=== PATIENT | male | born 1960 | race Caucasian/White ===

== ENCOUNTER 2024-11-09 09:09 | Emergency (ER) | payer OTHER ==
[2024-11-09] MEDS ORDERED: KETOROLAC 30 MG/ML INJ ONE (10:13)
[2024-11-09] MEDS ORDERED: ONDANSETRON 4 MG/2 ML VIAL ONE (10:13)
[2024-11-09] MEDS ORDERED: NA CHLORIDE 0.9% 1,000 ML ONE (10:14)
[2024-11-09] MEDS ORDERED: MORPHINE 4 MG/ML SYR ONE (10:24)
[2024-11-09 10:40] LABS: Absolute Monocytes 0.3 K/uL (0.1-1.3); Absolute Neutrophil 5.4 K/uL (1.8-8.0); Basophils % 0.6 % (0-1.3); Eosinophils % 0.2 % (0-4.4); Hematocrit 45.4 % (39.6-49.0); Hemoglobin 15.9 g/dL (13.6-17.9); MCH 32.6 pg (27.0-35.0); MCHC 35.1 g/dL (32.0-36.0); MPV 8.7 fL (7.6-11.3); Monocytes % 4.7 % (3.3-12.3); Neutrophils % 79.5 % (41.7-73.7); Nucleated Red Blood Cells % 0.1 % (0-0); Platelets 201 thou/uL (152-406); RBC Red Blood Cell Count 4.88 M/uL (4.33-5.43); Red Cell Distribution Width 12.4 % (12.1-15.2)
[2024-11-09 10:43] LABS: Specific Gravity 1.024 (1.005-1.030); Sqamous Epithelial None Seen /HPF (None Seen); Urine Bacteria <20 /HPF (<20); Urine Bilirubin NEGATIVE (Negative); Urine Blood 3+ (Negative); Urine Clarity Extremely Turbid (Clear); Urine Color Light-Yellow (Yellow); Urine Culture Reflex Order REFLEXED; Urine Glucose TRACE (Negative); Urine Ketones NEGATIVE (Negative); Urine Microscopic Reflex YN ORDER UMIC; Urine Mucus 2+ /HPF (None Seen); Urine Nitrite NEGATIVE (Negative); Urine Protein NEGATIVE (Negative); Urine RBC 21-50 /HPF (None Seen); Urine Urobilinogen Normal (Normal); Urine WBC <5 /HPF (<5); Urine pH 5.5 (5.0-7.0)
[2024-11-09 10:55] LABS: Albumin 3.6 g/dL (3.4-5.0); Albumin/Globulin Ratio 1.1 (1.1-1.8); Anion Gap 7.9 mEq/L (5.0-15.0); Bilirubin Total 0.9 mg/dL (0.2-1.0); Globulin 3.4 g/dL (2.3-3.5); Potassium 3.9 mEq/L (3.5-5.1)
--- NOTE | 2024-11-09 12:32 | RAD REPORT ---
EXAMINATION: CT Abdomen Pelvis W Contrast CLINICAL INDICATION: Male, 64 years old. FLANK PAIN TECHNIQUE: CT abdomen and pelvis was performed, after the administration of IV contrast, as per [facility] protocol. Axial, sagittal and coronal reconstructions were obtained. One or more of the following dose reduction techniques were used: Automated exposure control, adjustment of the mA and k V according to patient size, and iterative reconstruction. Unless otherwise specified, incidental findings do not require dedicated imaging follow-up. COMPARISON: No prior exam. FINDINGS: LOWER CHEST: The visualized lung bases are clear. LIVER: Mild fatty liver is present. No focal lesion or biliary dilataion is seen. BILIARY SYSTEM: No suspicious abnormalities. SPLEEN: Normal size. No focal lesion. PANCREAS: No mass, ductal dilation, or yany-pancreatic fluid. ADRENALS: Normal; no mass. KIDNEYS: Normal size and contour. 2 mm calculus at the right vesicoureteral junction. Mild right hydr oureteronephrosis with perinephric fat stranding. URINARY BLADDER: Decompressed limiting evaluation. GASTROINTESTINAL TRACT: No evidence of free air, significant intra-abdominal free fluid, bowel obstru ction or abscess. APPENDIX: Normal appendix. LYMPH NODES: No lymphadenopathy. MUSCULOSKELETAL: No acute or suspicious osseous abnormality. ADDITIONAL FINDINGS: Prostatomegaly. IMPRESSION: Mild right hydroureteronephrosis. 2 mm nonobstructing right vesicoureteral junction. Diffuse hepatic parenchymal hypoattenuation suggesting steatosis. Prostatomegaly. THIS REPORT CONTAINS FINDINGS THAT MAY BE CRITICAL TO PATIENT CARE. The findings were verbally commun icated via telephone to BRANNON Weinstein on 11/09/2024 12:29 PM.
--- NOTE | 2024-11-09 12:41 | ER ---
Nurse's Notes [facility] Name: Jr Sosa Age: 64 yrs Sex: Male : 1960 Arrival Date: 11/09/2024 Time: 09:09 Bed 11 Private MD: Diagnosis: Calculus of kidney with calculus of ureter-right, 2 mm Presentation: 11/09 09:30 Chief complaint: Patient states: R flank pain that began last night. N/V this morning. ss HX of kidney stones. Coronavirus screen: Client denies travel out of the [place] in the last 14 days. Ebola Screen: Patient denies exposure to infectious person. Patient denies travel to an Ebola-affected area in the 21 days before illness onset. Initial Sepsis Screen: Does the patient meet any 2 criteria? No. Patient's initial sepsis screen is negative. Does the patient have a suspected source of infection? No. Patient's initial sepsis screen is negative. Risk Assessment: Do you want to hurt yourself or someone else? Patient reports no desire to harm self or others. Onset of symptoms was November 08, 2024. 09:30 Method Of Arrival: Ambulatory ss 09:30 Acuity: LEXUS 3 ss Triage Assessment: 09:30 General: Appears in no apparent distress. Behavior is calm, cooperative. Pain: ss Complains of pain in R flank Pain radiates to R side of abd Pain began last night. Historical: - Allergies: 09:31 No Known Allergies; ss - Home Meds: :31 None [Active]; ss - PMHx: :31 kidney stones; ss - PSHx: 09:31 femur repair; ss - Infectious Disease History:: Denies. - Social history:: Smoking status: Patient denies any tobacco usage or history of. Screenin:30 Abuse screen: Denies threats or abuse. Denies injuries from another. Nutritional ss screening: No deficits noted. Tuberculosis screening: Never had TB. Assessment: 09:30 General: Appears in no apparent distress. Behavior is calm, cooperative. Pain: ss Complains of pain in R flank Pain radiates to right lower quadrant. Neuro: Level of Consciousness is awake, alert, obeys commands, Oriented to person, place, time, situation, Hall Cleaner are equal bilaterally Speech is normal. Respiratory: Airway is patent Respiratory effort is even, unlabored, Respiratory pattern is regular, symmetrical. GI: Reports nausea, vomiting. Derm: Skin is intact, is healthy with good turgor, Skin is dry, Skin is pink, warm \T\ dry. normal. 10:31 Reassessment: Patient appears in no apparent distress at this time. Patient and/or ss family updated on plan of care and expected duration. Pain level reassessed. Patient is alert, oriented x 3, equal unlabored respirations, skin warm/dry/pink. 12:42 Reassessment: Patient appears in no apparent distress at this time. Patient and/or ss family updated on plan of care and expected duration. Pain level reassessed. Patient denies pain at this time. Patient states feeling better. Pain: Pain currently is 2 out of 10 on a pain scale. Vital Signs: 09:30 BP 146 / 98; Pulse 62; Resp 15; Temp 98.2(TE); Pulse Ox 100% on R/A; ss 12:58 BP 138 / 86; Pulse 60; Resp 16; Pulse Ox 100% on R/A; Pain 2/10; ss 12:58 Pain Scale: Adult ss ED Course: 09:13 Patient arrived in ED. im 09:14 Rene Narvaez DO is Attending Physician. ms3 09:19 [facility] Atkinson [facility] sb4 09:30 Patient has correct armband on for positive identification. ss 09:31 Triage completed. ss 09:31 Arm band placed on right wrist. ss 10:16 Initial lab(s) drawn, by il, sent to lab. Inserted saline lock: 20 gauge in left zm antecubital area, using aseptic technique. Blood collected. Flushed with 10 mL NS. 10:17 Urine collected: clean catch specimen, clear. zm 10:17 CBC with Diff Sent. zm 10:17 CMP Sent. zm 10:17 Lipase Sent. zm 10:17 UA Rfx Bruce Cult if indicated Sent. zm 10:29 Trisha Mallory, EDDIE is Primary Nurse. ss 11:03 CT Abd/Pelvis - IV Contrast Only In Process Unspecified. EDMS 12:40 Otto Woods MD is Referral Physician. sb4 12:42 No provider procedures requiring assistance completed. ss 12:58 IV discontinued, intact, bleeding controlled, No redness/swelling at site. Pressure ss dressing applied. Administered Medications: 10:20 Drug: NS 0.9% IV 1000 ml IV at 1 bolus Per protocol; to be given as a bolus over 60 ss minutes Route: IV; Rate: 1 bolus; Site: left antecubital; 12:42 Follow up: IV Status: Completed infusion; IV Intake: 1000ml ss 10:21 Drug: Ondansetron IVP 4 mg IVP once; over 2 minutes Route: IVP; Site: left antecubital; ss 10:44 Follow up: Response: No adverse reaction; Nausea is decreased ss 10:25 Drug: TORadol - Ketorolac IVP 15 mg IVP once Route: IVP; Site: left antecubital; ss 10:46 Follow up: Response: No adverse reaction; Pain is decreased ss 10:31 Drug: morphine IVP or IV 4 mg IVP once over 4 mins Route: IVP; Infused Over: 4 mins; ss Site: left antecubital; 10:44 Follow up: Response: No adverse reaction; Pain is decreased; RASS: Alert and Calm (0) ss 12:57 Drug: Flomax PO 0.4 mg PO once Route: PO; ss 12:57 Follow up: Response: No adverse reaction ss 12:57 Follow up: Response: Medication Administered at Departure ss Medication: 09:30 VIS not applicable for this client. ss Intake: 12:42 IV: 1000ml; Total: 1000ml. ss Outcome: 12:40 Discharge ordered by . sb4 12:58 Discharged to home ambulatory, ss 12:58 Discharged to home 12:58 Condition: good 12:58 Discharge instructions given to patient, Instructed on discharge instructions, follow up and referral plans. medication usage, Demonstrated understanding of instructions, follow-up care, medications, Prescriptions given X 3, 12:58 Patient left the ED. ss Signatures: Dispatcher [employer] EDMS Trisha Mallory RN RN ss Rene Narvaez DO DO ms3 Licha Avila Sophia, PA-C PA-C sb4 Deanne Harris Corrections: (The following items were deleted from the chart) 09:31 09:31 PMHx: Kidney disease; ss ss 09:32 09:31 PSHx: None; ss ss
--- NOTE | 2024-11-09 12:41 | EDPHYS ---
Physician Documentation [facility] Name: Jr Sosa Age: 64 yrs Sex: Male : 1960 Arrival Date: 11/09/2024 Time: 09:09 Bed 11 Private MD: ED Physician Rene Narvaez HPI: 11/09 09:33 This 64 yrs old Male presents to ER via Ambulatory with complaints of Back Pain, sb4 Vomiting. 09:33 Patient reports right-sided flank pain that began in the middle the night associated sb4 with vomiting. Reports history of kidney stones and that this feels similar. States that his stones have all passed without any intervention previously. Denies any difficulty urinating or hematuria. Historical: - Allergies: : No Known Allergies; ss - Home Meds: : None [Active]; ss - PMHx: :31 kidney stones; ss - PSHx: 09:31 femur repair; ss - Infectious Disease History:: Denies. - Social history:: Smoking status: Patient denies any tobacco usage or history of. ROS: 09:33 Constitutional: Negative for fever, chills, and weight loss, sb4 09:33 Abdomen/GI: Positive for vomiting, 09:33 Back: Positive for flank pain, on the right, 09:33 All other systems are negative, Exam: 09:33 Constitutional: This is a well developed, well nourished patient who is awake, alert, sb4 and in no acute distress. Head/Face: Normocephalic, atraumatic. Eyes: Extra-ocular motions intact. Periorbital areas with no swelling, redness, or edema. ENT: Mucous membranes moist. Cardiovascular: Regular rate and rhythm with a normal S1 and S2. Respiratory: No increased work of breathing, no retractions or nasal flaring. Abdomen/GI: Soft, non-tender, no distension. Skin: Warm, dry with normal turgor. Normal color with no rashes, no lesions, and no evidence of cellulitis. 09:33 Back: CVA tenderness, that is moderate, is noted on the right, 12:42 Neuro: Exam negative for acute changes, focal neuro deficits, motor deficits, sensory sb4 deficits, cerebellar deficits, Vital Signs: 09:30 BP 146 / 98; Pulse 62; Resp 15; Temp 98.2(TE); Pulse Ox 100% on R/A; ss 12:58 BP 138 / 86; Pulse 60; Resp 16; Pulse Ox 100% on R/A; Pain 2/10; ss 12:58 Pain Scale: Adult ss MDM: 09:20 Medical Screening Exam initiated sb4 11:11 Differential diagnosis: Fracture Hydronephrosis Joint Injury Osteoarthritis sb4 Pyelonephritis ruptured disc, Ureterolithiasis. Data reviewed: vital signs, nurses notes, lab test result(s), radiologic studies, and as a result, I will discharge patient. Independent interpretation of the following test(s) in the Emergency Department CT Scan: My interpretation is My interpretation of the CT abdomen pelvis images is small stone in the urinary bladder. No stones visualized in the ureter or kidney. No evidence of hydronephrosis. 12:43 Counseling: I had a detailed discussion with the patient and/or guardian regarding the sb4 historical points, exam findings, and any diagnostic results supporting the discharge/admit diagnosis, the presence of at least one elevated blood pressure reading (>120/80) during this emergency department visit, lab results, radiology results, the need for outpatient follow up, a urologist, to return to the emergency department if symptoms worsen or persist or if there are any questions or concerns that arise at home. 11/09 09:32 Order name: CBC with Diff; Complete Time: 10:55 4 11/09 09:32 Order name: CMP; Complete Time: 10:56 sb4 11/09 09:32 Order name: Lipase; Complete Time: 10:56 4 11/09 09:32 Order name: UA Rfx Bruce Cult if indicated; Complete Time: 10:44 4 11/09 10:46 Order name: Urine Culture EDIN 11/09 09:32 Order name: CT Abd/Pelvis - IV Contrast Only; Complete Time: 12:38 sb4 11/09 09:32 Order name: IV Saline Lock; Complete Time: 10:17 sb4 11/09 09:32 Order name: Labs collected and sent; Complete Time: 10:17 sb4 Administered Medications: 10:20 Drug: NS 0.9% IV 1000 ml IV at 1 bolus Per protocol; to be given as a bolus over 60 ss minutes Route: IV; Rate: 1 bolus; Site: left antecubital; 12:42 Follow up: IV Status: Completed infusion; IV Intake: 1000ml ss 10:21 Drug: Ondansetron IVP 4 mg IVP once; over 2 minutes Route: IVP; Site: left antecubital; ss 10:44 Follow up: Response: No adverse reaction; Nausea is decreased ss 10:25 Drug: TORadol - Ketorolac IVP 15 mg IVP once Route: IVP; Site: left antecubital; ss 10:46 Follow up: Response: No adverse reaction; Pain is decreased ss 10:31 Drug: morphine IVP or IV 4 mg IVP once over 4 mins Route: IVP; Infused Over: 4 mins; ss Site: left antecubital; 10:44 Follow up: Response: No adverse reaction; Pain is decreased; RASS: Alert and Calm (0) ss 12:57 Drug: Flomax PO 0.4 mg PO once Route: PO; ss 12:57 Follow up: Response: No adverse reaction ss 12:57 Follow up: Response: Medication Administered at Departure ss Disposition: 17:40 I was immediately available on-site in the Emergency Department for consultation in the ms3 care of the patient. Disposition Summary: 11/09/24 12:40 Discharge Ordered Notes: Location: Home sb4 Problem: new sb4 Symptoms: have improved sb4 Condition: Stable sb4 Diagnosis - Calculus of kidney with calculus of ureter - right, 2 mm sb4 Followup: sb4 - With: Otto Woods MD - When: As needed - Reason: Recheck today's complaints, Re-evaluation by your physician Discharge Instructions: - Discharge Summary Sheet sb4 - Kidney Stones sb4 Forms: - Patient Portal Instructions sb4 - Leadership Thank You Letter sb4 Prescriptions: - tamsulosin 0.4 mg Oral capsule - take 1 capsule ORAL route daily; 30 capsule; Refills: 0, Product Selection sb4 Permitted - Zofran 4 mg Oral Tablet - take 1 tablet ORAL route every 12 hours As needed; 20 tablet; Refills: 0, sb4 Product Selection Permitted - Tramadol 50 mg Oral Tablet - take 1 tablet ORAL route every 8 hours as needed; 12 tablet; Refills: 0, sb4 Product Selection Permitted Signatures: Dispatcher [employer] Trisha Taylor RN RN ss Rene Narvaez DO DO ms3 Shasta Atkinson PA-C PA-C sb4 Corrections: (The following items were deleted from the chart) : PMHx: Kidney disease; ss ss 09:32 Abdomen Pelvis W Con+CT.RAD.BRZ ordered. EDMS EDMS : PSHx: None; [facility]
[2024-11-09] MEDS ORDERED: TAMSULOSIN 0.4 MG SR CAP ONE (12:50)
[2024-11-09 13:06] VITALS: TEMP 98.2; O2SAT 100
[2024-11-09 13:08] VITALS: BP 138/86
== END 2024-11-09 12:58 | disposition home or self-care (01) ==
LOC: ER 09:09
DX: N20.2 Calculus of kidney with calculus of ureter (principal); Z87.442 Personal history of urinary calculi
CPT/HCPCS: 96361; 87088; 85025; 81001; 87086; 36415; 83690; 80053; 74177; 96375; 96374; 99284; Q9967; J2405; J7030